=== PATIENT | female | born 1985 | race Caucasian/White ===

== ENCOUNTER 2017-01-28 18:39 | Emergency (ER) | payer OTHER ==
--- NOTE | 2017-01-28 20:00 | ER Document Report ---
HPI - HPI Patient complains to provider of: right chest pain Pain Level: Denies Context: 27 yo female c/o pain to right anterior upper chest wall x 1 day. 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 pt denies any shortness of breath. + recent car trip to [place], returned 2 days ago. pt is nonsmoker. no oral contraception. no recent surgery or trauma. Associated Symptoms: None Exacerbated by: Movement, Deep breathing Relieved by: Denies Similar symptoms previously: No Recently seen / treated by doctor: No - ROS Systems Reviewed and Negative: Yes All other systems reviewed and negative - CARDIOVASCULAR Cardiovascular: DENIES: Chest pain - REPRODUCTIVE LMP: 01/07/17 - DERM Skin Color: Normal Past Medical History - General Information source: Patient - Social History Smoking Status: Never Smoker Chew tobacco use (# tins/day): No Frequency of alcohol use: Rare Drug Abuse: None Lives with: Family Family History: Reviewed & Not Pertinent - Medical History Medical History: Other - anemia Renal/ Medical History: Denies: Hx Peritoneal Dialysis Past Surgical History: Reports: Hx Breast Surgery - Immunizations Hx Diphtheria, Pertussis, Tetanus Vaccination: Yes - 04/2013 Vertical Provider Document - CONSTITUTIONAL Agree With Documented VS: Yes Exam Limitations: No Limitations - INFECTION CONTROL TRAVEL OUTSIDE OF THE [place] IN LAST 30 DAYS: No - HEENT HEENT: Atraumatic, PERRLA - NECK Neck: Normal Inspection, Supple - RESPIRATORY Respiratory: Breath Sounds Normal, No Respiratory Distress, Other - + reproducable intercostal tenderness right anterior chest wall O2 Sat by Pulse Oximetry: 100 - CARDIOVASCULAR Cardiovascular: Regular Rate, Regular Rhythm - NEURO Level of Consciousness: Awake, Alert, Appropriate - DERM Integumentary: Warm, Dry Course - Re-evaluation Re-evalutation: 01/28/17 20:03 chest xray is unremarkable. no sign of pneumothorax or infiltrate. pt has low risk profile for PE. not tachipnic, tachycardic or hypoxic. will treat chest wall pain with anti inflammatory medication and muscle relaxant and close follow up with primary care. pt is agreeable with plan and stable for discharge - Vital Signs Vital signs: Temp Pulse Resp BP Pulse Ox 98.4 F 68 18 136/63 H 100 01/28/17 18:43 01/28/17 18:43 01/28/17 18:43 01/28/17 18:43 01/28/17 18:43 Discharge - Discharge Clinical Impression: Right-sided chest wall pain Condition: Stable Disposition: HOME, SELF-CARE Instructions: Anti-Inflammatory Medication ([facility]), Chest Wall Pain ([facility]) Additional Instructions: Your chest xray is negataive today Your pain is most likely musculoskelatal Take anti-inflammatory medication as prescribed apply moist heat to area follow up with primary care if symptoms persist return to ER for any increased pain, shortness of breath or worsening of status Prescriptions: Ibuprofen [Motrin 800 Mg Tablet] 800 mg PO Q6H #20 tablet Methocarbamol [Robaxin 500 Mg Tablet] 1,000 mg PO Q6 #30 tablet
[2017-01-28 20:32] VITALS: BP 97/56
--- NOTE | 2017-01-30 14:09 | RADIOLOGY REPORT (SQ) ---
EXAM DESCRIPTION: CHEST PA/LAT COMPLETED DATE/TIME: 01/28/2017 7:17 pm REASON FOR STUDY: right sided chest pain COMPARISON: None. EXAM PARAMETERS: NUMBER OF VIEWS: two views TECHNIQUE: Digital Frontal and Lateral radiographic views of the chest acquired. RADIATION DOSE: NA LIMITATIONS: none FINDINGS: LUNGS AND PLEURA: No opacities, masses or pneumothorax. No pleural effusion. MEDIASTINUM AND HILAR STRUCTURES: No masses or contour abnormalities. HEART AND VASCULAR STRUCTURES: Heart normal size. No evidence for failure. BONES: No acute findings. HARDWARE: None in the chest. OTHER: No other significant finding. IMPRESSION: NO ACUTE RADIOGRAPHIC FINDING IN THE CHEST. TECHNICAL DOCUMENTATION: JOB ID: [id number] [employer]- All Rights Reserved
== END 2017-01-28 20:32 | disposition home or self-care (01) ==
LOC: ER 18:39
DX: R07.89 Other chest pain (principal)
CPT/HCPCS: 71020; 99283

== ENCOUNTER 2018-11-18 12:30 | Day surgery (SDC) | payer OTHER ==
[2018-11-15 11:06] LABS: APPEARANCE,URINE CLEAR; BILIRUBIN,URINE NEGATIVE (NEGATIVE); COLOR,URINE STRAW; GLUCOSE, URINE NEGATIVE (NEGATIVE); KETONES,URINE NEGATIVE (NEGATIVE); LEUKOCYTE ESTERASE,URINE NEGATIVE (NEGATIVE); NITRITE,URINE NEGATIVE (NEGATIVE); PROTEIN,URINE NEGATIVE (NEGATIVE); URINE SPECIFIC GRAVITY 1.008; UROBILINOGEN,URINE NEGATIVE mg/dL (<2.0)
[2018-11-15 11:11] LABS: HEMATOCRIT 37.8 % (36.0-47.0); HEMOGLOBIN 12.8 g/dL (12.0-15.5); MEAN CORPUSCULAR HEMOGLOBIN 32.1 pg (27.0-33.4); MEAN CORPUSCULAR HGB CONC 33.9 g/dL (32.0-36.0); MEAN CORPUSCULAR VOLUME 95 fl (80-97); PLATELET COUNT 145 10^3/uL (150-450); RED BLOOD COUNT 3.99 10^6/uL (3.72-5.28); RED CELL DISTRIBUTION WIDTH 13.5 % (11.5-14.0); WHITE BLOOD COUNT 6.8 10^3/uL (4.0-10.5)
[~2018-11-18 12:30] MED LIST: LACTATED RINGERS 1000 ML IV PRN; LIDOCAINE 0.5% INJ-PF (5 MG/ML) 50 ML SDV SUBCUT PRN
[2018-11-18] MEDS ORDERED: LIDOCAINE 1%/EPINEPHRINE INJ 20 ML VIAL ONE (12:54)
[2018-11-18] MEDS ORDERED: DEXAMETHASONE SOD PHOSPHATE INJ 4 MG/1 ML VIAL ONE (13:45)
[2018-11-18] MEDS ORDERED: ROCURONIUM BROMIDE INJ 50 MG/5 ML VIAL IV ONE (13:45)
[2018-11-18] MEDS ORDERED: SUCCINYLCHOLINE CHLORIDE INJ 200 MG/10 ML VIAL ONE (13:45)
[2018-11-18] MEDS ORDERED: GLYCOPYRROLATE 1 MG/5 ML SYRINGE ONE (13:45)
[2018-11-18] MEDS ORDERED: NEOSTIGMINE METHYLSULFATE 10 MG/10 ML VIAL ONE (13:45)
[2018-11-18] MEDS ORDERED: LIDOCAINE 2% INJ-PF (20 MG/ML) 2 ML AMPUL ONE (13:45)
[2018-11-18] MEDS ORDERED: KETOROLAC TROMETHAMINE 60 MG/2 ML SDV ONE (13:45)
[2018-11-18] MEDS ORDERED: ONDANSETRON HCL INJ/PF 4 MG/2 ML SDV ONE (13:45)
[2018-11-18] MEDS ORDERED: MIDAZOLAM 2 MG/2 ML INJ ONE (14:55)
[2018-11-18] MEDS ORDERED: FENTANYL CITRATE INJ/PF 100 MCG/2 ML AMPUL ONE (14:55)
[2018-11-18] MEDS ORDERED: FENTANYL CITRATE INJ/PF 250 MCG/5 ML AMPULE ONE (14:55)
[2018-11-18] MEDS ORDERED: PROPOFOL INJ 200 MG/20 ML VIAL IV ONE (14:55)
[2018-11-18] MEDS ORDERED: PROMETHAZINE HCL INJ 25 MG/1 ML VIAL IV PRN ×2 (15:52)
[2018-11-18] MEDS ORDERED: ONDANSETRON HCL INJ/PF 4 MG/2 ML SDV IV PRN (15:52)
[2018-11-18] MEDS ORDERED: FENTANYL CITRATE INJ/PF 100 MCG/2 ML AMPUL IV PRN ×3 (15:52)
[2018-11-18] MEDS ORDERED: MEPERIDINE HCL/PF INJ 25 MG/1 ML DISP.SYRIN IV PRN (15:52)
[2018-11-18] MEDS ORDERED: DIPHENHYDRAMINE HCL 50 MG/ML VIAL IV PRN (15:52)
[2018-11-18] MEDS ORDERED: OXYCODONE-ACETAMINOPHEN 5-325 MG TABLET PO PRN ×3 (15:52→17:00)
[2018-11-18] MEDS ORDERED: MORPHINE SULFATE 10 MG/ML INJ IV PRN (15:52)
[2018-11-18] MEDS ORDERED: ACETAMINOPHEN 1,000 MG/100 ML RTUPB IV ONE (16:40)
[2018-11-18] MEDS ORDERED: MORPHINE SULFATE 10 MG/ML INJ IM PRN (16:51)
[2018-11-18] MEDS ORDERED: IBUPROFEN 800 MG TABLET PO PRN (17:00)
[2018-11-18] MEDS ORDERED: OXYCODONE-ACETAMINOPHEN 5-325 MG TABLET ONE (17:26)
[2018-11-18] MEDS: OXYCODONE-ACETAMINOPHEN 5-325 MG TABLET PO PRN ×2 (17:40→17:45)
[2018-11-18 20:01] VITALS: BP 110/60
--- NOTE | 2018-11-18 20:15 | OPERATIVE REPORT E ---
Operative Report NAME: FABIEN WORTHY : 1985 AGE: 33Y DATE OF SURGERY: 11/18/2018 ROOM: PREOPERATIVE DIAGNOSIS: RIGHT OVARIAN CYST. POSTOPERATIVE DIAGNOSIS: CHRONIC PELVIC PAIN WITH ABNORMAL UTERINE BLEEDING. OPERATION: DIAGNOSTIC HYSTEROSCOPY AND LAPAROSCOPY WITH REPAIR OF UTERINE PERFORATION. SURGEON: KEANU BALL M.D. REPORTING PROCESS CONSULTANT: Viridiana Rodriguez, assistant store manager certified surgical assistant. ANESTHESIA: Dr. [place], general. FINDINGS: The uterus sounded to 10 cm. COMPLICATIONS: Uterine perforation x2. ESTIMATED BLOOD LOSS: 100 mL. SPECIMENS REMOVED: None. PROCEDURE: The patient was taken to the operating room, prepared and draped in normal sterile fashion in the dorsal lithotomy position. Under sterile conditions, in and out catheterization was performed with approximately 150 mL of clear urine. A sterile speculum was placed in the vagina, and the cervix was grasped on the anterior lip with a single-tooth tenaculum. The cervix was prepped with Betadine and the uterus was sounded approximately 10 cm. I noticed some resistance here and did not notice any evidence of perforation at the time. I continued to dilate the cervix to accommodate a 5 mm hysteroscope, which was introduced without difficulty, and the perforation was noted at this time. The endometrial cavity was very normal in appearance, and there was nothing that was suggestive of polyps or any other pathology. I considered taking an endometrial curetting; however, there was simply no pathology noted. Due to the concern of the perforation, I discontinued this portion of the case. I removed the speculum, removed the hysteroscope, placed a sponge stick into the vagina for uterine manipulation, and changed my gloves and turned my attention to the upper portion of the case, where umbilical skin incision was made with a scalpel and the Veress needle was introduced into the abdomen. Peritoneal cavity placement was confirmed with free flow of sterile water, and an entering pressure of 4 mmHg with application of the CO2 gas. The abdomen was inflated with approximately 2 liters of CO2 gas, and the Veress needle was removed. A 5 mm port was placed through this incision. Once inside the abdomen, we noted approximately 200 mL of bloody-tinged fluid in the abdomen, so two 5 mm ports were placed approximately 10 cm on either side of the umbilicus. I then inspected the uterus carefully and found two small nicks at the top of the fundus, one on the right aspect of the fundus and one in the midline. There was a small amount of bleeding at these areas; however, it did not appear to be profusely bleeding. The uterine arteries were inspected on both sides and found to be intact with no evidence of hemorrhage. The posterior aspect of the uterus was noted to be intact with no evidence of further perforation, and the bladder was also inspected and found to be normal. The suction clinical quality manager was introduced and the bloody fluid was suctioned away. I then determined at this time the fluid was hysteroscopy fluid that had been blood-tinged by the perforation sites. I reinspected just to be sure, and again there was no further bleeding noted other than from the two perforation sites previously mentioned, and the uterine arteries were again intact. We then continued with the rest of the diagnostic laparoscopy. The ovaries were inspected and found to be normal. There was supposed to be a cyst in the right ovary; however, there was no cyst noted. I inspected the left, and there was again no cyst noted. They were enlarged and consistent with a young reproductive age woman. I did grasp both ovaries with an atraumatic grasper and there was no hint of a cyst-like quality to the ovaries. I thought of taking a biopsy; however, again grasping them, realized that there was simply no tissue to try to biopsy, and I left the ovaries alone. Attention was then turned to the perforation nicks, as I did have scissors at this point, and coagulated both sites well with coag using the laparoscopic scissors until this bleeding was slowed significantly. I then placed Interceed on both sites in order to assist with hemostasis, and wet it slightly with some irrigation fluid. I then waited and held pressure with the Interceed and watched both sites for approximately 10 minutes and did not notice any further bleeding. In the meantime, I did inspect the rest of the cavity, and again did not notice any expansion of bloody fluid within the peritoneal cavity. We continued to suction some of the fluid out while waiting, and once we were assured that the areas were indeed hemostatic, the case was concluded. All trocars were removed without difficulty, and the skin was closed at all three sites using 4-0 Vicryl. The patient tolerated the procedure well. Sponge, lap, and needle counts were correct x2, and the patient was taken to recovery in stable condition. DICTATING PHYSICIAN: KEANU BALL M.D. [id number] PHY#: [id number] ID: [id number] JOB#: [id number] ACCT: [id number] cc:KEANU BALL M.D. >
== END 2018-11-18 18:45 | disposition home or self-care (01) ==
LOC: OROUT 12:30
PROVIDERS: ATTEND Obstetrics & Gynecology
DX: S37.69XA Other injury of uterus, initial encounter (principal); X58.XXXA Exposure to other specified factors, initial encounter; N93.9 Abnormal uterine and vaginal bleeding, unspecified; G89.29 Other chronic pain; R10.2 Pelvic and perineal pain; E88.81 Metabolic syndrome and other insulin resistance
CPT/HCPCS: 36415; 85027; 81005; 81025; 00840; 58555; 58578; C1765; J2250; J3490 ×3; J1100; J1885; J3010; J2710; J0330; J2405; J2704; J0131; 840